=== PATIENT | male | born 1990 | race Caucasian/White ===

== ENCOUNTER 2017-04-20 11:13 | Emergency (ER) | payer SELFPAY ==
[2017-04-20] MEDS ORDERED: BUPIVACAINE HCL 0.5 % INJ/PF 30 ML SDV INJ ONE (12:09)
[2017-04-20] MEDS ORDERED: HYDROCODONE/ACETAMINOPHEN 5-325 MG (6 TAB/ER DISP) PO PRN (12:09)
[2017-04-20] MEDS ORDERED: HYDROCODONE/ACETAMINOPHEN 5-325 MG TABLET PO ONE (12:09)
--- NOTE | 2017-04-20 12:09 | ER Document Report ---
HPI - HPI Patient complains to provider of: toothache Pain Level: 4 Context: Patient is a 27-year-old male presents emergency department complaining of left lower jaw pain. Patient states that he is dental pain on and off every couple months due to severe dental decay. Patient states that he is supposed to follow -up with a dentist for full dental extraction but he lost his insurance. Otherwise he denies any fever, chills, drainage or foul odor from teeth. Denies any difficulty swallowing or difficulty breathing. Patient is a smoker Past Medical History - Social History Smoking Status: Current Every Day Smoker Chew tobacco use (# tins/day): No Frequency of alcohol use: None Drug Abuse: None Family History: DM, Hypertension, Malignancy. denies: Arthritis, CAD, CVA, Hyperlipidemia, Thyroid Disfunction Renal/ Medical History: Denies: Hx Peritoneal Dialysis GI Medical History: Reports: Hx Gastritis, Hx Gastroesophageal Reflux Disease Psychiatric Medical History: Reports: Hx Anxiety, Hx Depression - Immunizations Immunizations up to date: Yes Hx Diphtheria, Pertussis, Tetanus Vaccination: Yes - 2013 Vertical Provider Document - CONSTITUTIONAL Agree With Documented VS: Yes Exam Limitations: No Limitations General Appearance: WD/WN, No Apparent Distress - INFECTION CONTROL TRAVEL OUTSIDE OF THE [place] IN LAST 30 DAYS: No - HEENT HEENT: Atraumatic, Normocephalic, PERRLA. negative: Normal ENT Exam Mouth Diagram: 1 - Evidence of severe dental decay with teeth down to the gums throughout the entire mouth with normal dentition of teeth 8 and 9. Tenderness along the left lower jaw without any evidence of gingival inflammation or abscess Notes: Uvula midline. Airway patent. No evidence of tonsillar enlargement, peritonsillar abscess, retropharyngeal abscess. - NECK Neck: Normal Inspection. negative: Lymphadenopathy-Left, Lymphadenopathy-Right Notes: No evidence of Bunny's angina - RESPIRATORY Respiratory: Breath Sounds Normal, No Respiratory Distress, Chest Non-Tender O2 Sat by Pulse Oximetry: 97 - CARDIOVASCULAR Cardiovascular: Regular Rate, Regular Rhythm, No Murmur Course - Re-evaluation Re-evalutation: 04/20/17 13:13 Presentation is most consistent with likely an infected tooth. Airway is patent. Vitals within normal limits. Patient is able swallow without any difficulty. There is no significant facial swelling. Patient will be started on antibiotics and a limited number of pain medications. I've instructed to follow-up with dentistry as earliest ability for definitive management. Return precautions and follow-up recommendations have been discussed at length. - Vital Signs Vital signs: Temp Pulse Resp BP Pulse Ox 97.6 F 67 20 126/82 H 97 04/20/17 11:17 04/20/17 11:17 04/20/17 11:17 04/20/17 11:17 04/20/17 11:17 Procedures - Additional Procedures Dental block Additional Procedures: Other - Left infra alveolar dental block 5 cc Sensorcaine. Patient tolerated procedure well with complete resolution of his symptoms and no complications Discharge - Discharge Clinical Impression: Toothache Condition: Good Disposition: HOME, SELF-CARE Additional Instructions: You have been seen for dental pain. It is very important that you follow-up with a dentist for definitive care. Please return if you develop fever greater than 101, swelling in your face, vomiting, difficulty breathing or swallowing, or any other symptoms that are concerning to you. F [facility] Address: [address] [place] [address] [address], [place] [address] [facility] [address] [place], [place] Monday mornings, by appointment [facility] [address] [place] [address] [facility] [address] [facility]. [facility] [address] [facility] [address] [facility] [employer] [facility] [address] [email or web address] [address] [place] [address] Monday- 8:00am to 5:00 pm Will see patients from other [facility]. Charges based on income and family size and accepts Medicare, Medicaid, and Insurances Will pull molars [facility] Student Clinics [facility], [facility]. [id number] Hours of Operation 8:00 am - 4:30 pm weekdays The following dental offices accept Medicaid: [facility] Dr. Zimmerman Dr. Hawthorne Dr. Velasquez Dr. Sanchez Jamal Taylor, Karly, and Shobha oral surgery Dr. Menendez ([place]) Dr. Gay ([place]) [facility] Drs. Sarmiento ([place]) Dr. Spann ([place]) [facility] Dr. Williamson ([place]) Drs. Reynoso and ([place]) Medicaid Care Line
[2017-04-20 13:22] VITALS: BP 133/89
== END 2017-04-20 13:22 | disposition home or self-care (01) ==
LOC: ER 11:13
PROC: 3E0T3BZ Introduction of Anesthetic Agent into Peripheral Nerves and Plexi, Percutaneous Approach (ICD-10-PCS; principal; 2017-04-20)
DX: K08.9 Disorder of teeth and supporting structures, unspecified (principal); F17.200 Nicotine dependence, unspecified, uncomplicated
CPT/HCPCS: 99282; J3490

== ENCOUNTER 2017-10-09 12:25 | Emergency (ER) | payer SELFPAY ==
[2017-10-09 12:45] VITALS: BP 126/86
[2017-10-09] MEDS ORDERED: OXYCODONE-ACETAMINOPHEN 5-325 MG TABLET PO ONE (13:42)
[2017-10-09] MEDS ORDERED: CLINDAMYCIN HCL 150 MG CAPSULE PO ONE (13:42)
[2017-10-09] MEDS ORDERED: IBUPROFEN 800 MG TABLET PO ONE (13:43)
--- NOTE | 2017-10-09 13:46 | ER Document Report ---
HPI - HPI Patient complains to provider of: dental infection Onset: Last week Onset/Duration: Worse Quality of pain: Sharp Pain Level: 4 Context: Patient states that he has had a dental infection with dental pain for the past week. Patient states over the past 2 days that his lower jaw started to swell. Patient denies any fever. Patient states that his child accidentally hit his lower jaw with his head in the area noticeably started to swell. Patient denies any fever. Associated Symptoms: Other - Dental pain. denies: Fever Exacerbated by: Denies Relieved by: Denies Similar symptoms previously: Yes Recently seen / treated by doctor: No - ROS ROS below otherwise negative: Yes Systems Reviewed and Negative: Yes All other systems reviewed and negative - CONSTITUTIONAL Constitutional: DENIES: Fever, Chills - EENT Notes: dental infection - RESPIRATORY Respiratory: DENIES: Coughing - GASTROINTESTINAL Gastrointestinal: DENIES: Nausea, Patient vomiting - DERM Skin Color: Normal Skin Problems: None Past Medical History - General Information source: Patient - Social History Smoking Status: Current Every Day Smoker Chew tobacco use (# tins/day): No Smoking Education Provided: Yes Frequency of alcohol use: None Drug Abuse: None Lives with: Family Family History: DM, Hypertension, Malignancy. denies: Arthritis, CAD, CVA, Hyperlipidemia, Thyroid Disfunction Patient has suicidal ideation: No Patient has homicidal ideation: No Renal/ Medical History: Denies: Hx Peritoneal Dialysis GI Medical History: Reports: Hx Gastritis, Hx Gastroesophageal Reflux Disease Psychiatric Medical History: Reports: Hx Anxiety, Hx Depression - Immunizations Immunizations up to date: Yes Hx Diphtheria, Pertussis, Tetanus Vaccination: Yes - 2014 Vertical Provider Document - CONSTITUTIONAL Agree With Documented VS: Yes Exam Limitations: No Limitations General Appearance: WD/WN, No Apparent Distress - INFECTION CONTROL TRAVEL OUTSIDE OF THE [place] IN LAST 30 DAYS: No - HEENT HEENT: Atraumatic, Normocephalic. negative: Pharyngeal Exudate, Pharyngeal Tenderness, Pharyngeal Erythema, Tympanic Membrane Red, Tympanic Membrane Bulging Mouth Diagram: 1 - widespread decay, dental fracture 2 - abscess Notes: No sublingual or submental swelling. No trismus - NECK Neck: Normal Inspection, Supple. negative: Lymphadenopathy-Left, Lymphadenopathy-Right - RESPIRATORY Respiratory: No Respiratory Distress - MUSCULOSKELETAL/EXTREMETIES Musculoskeletal/Extremeties: MAEW - NEURO Level of Consciousness: Awake, Alert, Appropriate Motor/Sensory: No Motor Deficit - DERM Integumentary: Warm, Dry, No Rash Course - Re-evaluation Re-evalutation: 10/09/17 Controlled substance database reviewed - Vital Signs Vital signs: Temp Pulse Resp BP Pulse Ox 98.1 F 65 18 126/86 H 98 10/09/17 12:44 10/09/17 12:44 10/09/17 12:44 10/09/17 12:44 10/09/17 12:44 Procedures - Incision and Drainage Left Face Type: Simple Incision Method: Incision made with needle Amount/type of drainage: small amount of purulent, bloody drainage Mouth/Teeth picture: 1 - abscess i&d site Discharge - Discharge Clinical Impression: Dental abscess Condition: Stable Disposition: HOME, SELF-CARE Instructions: Clindamycin ([facility]), Dental Infection or Abscess ([facility]), Oral Narcotic Medication ([facility]) Additional Instructions: Return immediately for any new or worsening symptoms Followup with your primary care provider, call tomorrow to make a followup appointment Follow-up with a dental care provider Prescriptions: Acetaminophen with Codeine [Acetaminophen-Cod #3 Tablet] 1 each PO Q6 PRN #15 tablet PRN Reason: Clindamycin HCl [Cleocin 300 mg Capsule] 300 mg PO TID #21 capsule Naproxen [Naprosyn 250 Nmg Tablet] 1 tab PO BID #14 tablet Forms: Smoking Cessation Education Referrals: [facility] [Provider Group] - Follow up tomorrow
== END 2017-10-09 13:57 | disposition home or self-care (01) ==
LOC: ER 12:25
DX: K04.7 Periapical abscess without sinus (principal); K02.9 Dental caries, unspecified; K08.89 Other specified disorders of teeth and supporting structures; F17.200 Nicotine dependence, unspecified, uncomplicated
CPT/HCPCS: 99283

== ENCOUNTER 2020-01-21 12:21 | Emergency (ER) | payer SELFPAY ==
[2020-01-21 13:22] VITALS: BP 130/73
--- NOTE | 2020-01-21 13:41 | ER Document Report ---
ED ENT - General Chief Complaint: Runny Nose Stated Complaint: HEAD PAIN/CONGESTION Time Seen by Provider: 01/21/20 13:39 Mode of Arrival: Ambulatory Information source: Patient Notes: 29-year-old male with no previous medical problems presents to the emergency room complaining of sinus pain and pressure with a runny nose for the past 4 days. Denies any fevers, no shortness of breath, no difficulty breathing. No recent travel. No COVID-19 exposure. Has been using an [id number]-nvkuqom nasal spray along with ibuprofen without relief. He normally. No ill contacts. TRAVEL OUTSIDE OF THE [place] IN LAST 30 DAYS: No - Related Data Allergies/Adverse Reactions: No Known Allergies Allergy (Verified 10/09/17 13:16) Past Medical History - General Information source: Patient - Social History Smoking Status: Current Every Day Smoker Frequency of alcohol use: None Drug Abuse: None Family History: DM, Hypertension, Malignancy. denies: Arthritis, CAD, CVA, Hyperlipidemia, Thyroid Disfunction Renal/ Medical History: Denies: Hx Peritoneal Dialysis GI Medical History: Reports: Hx Gastritis, Hx Gastroesophageal Reflux Disease Psychiatric Medical History: Reports: Hx Anxiety, Hx Depression - Immunizations Immunizations up to date: Yes Hx Diphtheria, Pertussis, Tetanus Vaccination: Yes - 2013 Review of Systems - Review of Systems Constitutional: No symptoms reported EENT: Nose congestion, Nose discharge, Sinus pressure Cardiovascular: No symptoms reported Respiratory: No symptoms reported Gastrointestinal: No symptoms reported Musculoskeletal: No symptoms reported Hematologic/Lymphatic: No symptoms reported Neurological/Psychological: No symptoms reported -: Yes All other systems reviewed and negative Physical Exam - Vital signs Vitals: Temp Pulse Resp BP Pulse Ox 98.1 F 69 16 130/73 H 99 01/21/20 13:20 01/21/20 13:20 01/21/20 13:20 01/21/20 13:20 01/21/20 13:20 - General General appearance: Appears well, Alert In distress: Mild - HEENT Head: Normocephalic, Atraumatic Eyes: Normal Pupils: PERRL External canal: Normal Tympanic membrane: Normal Sinus: Frontal Nasal: Clear rhinorrhea Mouth/Lips: Normal Mucous membranes: Normal Pharynx: Normal Neck: Normal - Respiratory Respiratory status: No respiratory distress Chest status: Nontender Breath sounds: Normal Chest palpation: Normal - Cardiovascular Rhythm: Regular Heart sounds: Normal auscultation Murmur: No - Neurological Neuro grossly intact: Yes Cognition: Normal Orientation: AAOx4 [place] Coma Scale Eye Opening: Spontaneous [place] Coma Scale Verbal: Oriented [place] Coma Scale Motor: Obeys Commands [place] Coma Scale Total: 15 Speech: Normal Motor strength normal: LUE, RUE, LLE, RLE Sensory: Normal - Skin Skin Temperature: Warm Skin Moisture: Dry Skin Color: Normal Course - Re-evaluation Re-evalutation: 01/21/20 13:56 Counseled patient on viral illness. Afebrile, nontoxic-appearing, counseled patient on no signs of acute sinus infection. Continue with supportive therapy. Outpatient follow-up with primary care physician if not improving in 2 to 3 days. On-call physician was provided. Patient was given strict return to the emergency room guidelines. Return for any new or worsening symptoms. All questions were answered. Patient verbalized understanding and agrees with plan of care. - Vital Signs Vital signs: Temp Pulse Resp BP Pulse Ox 98.1 F 69 16 130/73 H 99 01/21/20 13:20 01/21/20 13:20 01/21/20 13:20 01/21/20 13:20 01/21/20 13:20 Discharge - Discharge Clinical Impression: Viral URI Condition: Stable Disposition: HOME, SELF-CARE Instructions: Upper Respiratory Illness ([facility]) Additional Instructions: Your symptoms are most likely due to a viral infection it should resolve over the next 7-14 days. You should take [id number] guanfacine per bottle instructions to help thin the mucus. For nasal congestion: Continue use of nasal spray as directed. You may also use tylenol or ibuprofen as needed for aches and discomfort. Please be sure to drink plenty of fluids and get rest. Return to the emergency department he began having difficulty breathing, chest pain, persistent vomiting, or any other symptoms that are concerning to you. Forms: Return to Work Referrals: INGRID MENEZES MD [COMMUNITY BASED STAFF] - Follow up as needed
== END 2020-01-21 14:04 | disposition home or self-care (01) ==
LOC: ER 12:21
DX: J06.9 Acute upper respiratory infection, unspecified (principal); R09.89 Other specified symptoms and signs involving the circulatory and respiratory systems; R51 Headache; R09.81 Nasal congestion; F17.200 Nicotine dependence, unspecified, uncomplicated
CPT/HCPCS: 99283

== ENCOUNTER 2020-01-22 04:28 | Emergency (ER) | payer SELFPAY ==
[2020-01-22 04:35] VITALS: BP 144/96
[2020-01-22] MEDS ORDERED: HYDROCODONE/ACETAMINOPHEN 5-325 MG (6 TAB/ER DISP) PO PRN (06:52)
[2020-01-22] MEDS ORDERED: AMOXICILLIN TRIHYDRATE 500 MG CAPSULE PO ONE (06:52)
--- NOTE | 2020-01-22 06:54 | ER Document Report ---
HPI - HPI Time Seen by Provider: 01/22/20 06:43 Pain Level: 3 Context: Patient is a 29-year-old male that comes emergency department for chief complaint of swelling and pain to the left side of the face and upper jaw. He states he was seen earlier today, diagnosed with viral sinusitis, he states that he is taking regiment and Tylenol and ibuprofen with no significant improvement of his symptoms, he states he cannot sleep. He denies vomiting, fever, cough, neck stiffness, sore throat, difficulty swallowing. He does admit to some mild congestion nasally. He takes no daily medications. - REPRODUCTIVE Reproductive: DENIES: : Past Medical History - General Information source: Patient - Social History Smoking Status: Current Every Day Smoker Frequency of alcohol use: None Drug Abuse: None Lives with: Family Family History: DM, Hypertension, Malignancy. denies: Arthritis, CAD, CVA, Hyperlipidemia, Thyroid Disfunction Patient has homicidal ideation: No Renal/ Medical History: Denies: Hx Peritoneal Dialysis GI Medical History: Reports: Hx Gastritis, Hx Gastroesophageal Reflux Disease Psychiatric Medical History: Reports: Hx Anxiety, Hx Depression - Immunizations Immunizations up to date: Yes Hx Diphtheria, Pertussis, Tetanus Vaccination: Yes - 2013 [facility] Provider Document - CONSTITUTIONAL General Appearance: WD/WN, Mild Distress - Patient appears uncomfortable and is not in severe distress - INFECTION CONTROL TRAVEL OUTSIDE OF THE [place] IN LAST 30 DAYS: No - HEENT HEENT: Atraumatic, Normocephalic, PERRLA. negative: Conjuctival Injection, Dental Injury Mouth Diagram: 1 - Dental caries with surrounding erythema and tenderness, widespread dental caries otherwise, no abscess is noted - NECK Neck: Normal Inspection - RESPIRATORY Respiratory: Breath Sounds Normal, No Respiratory Distress - CARDIOVASCULAR Cardiovascular: Regular Rate, Regular Rhythm - GI/ABDOMEN Gastrointestinal: Abdomen Soft, Abdomen Non-Tender - BACK Back: Normal Inspection - MUSCULOSKELETAL/EXTREMETIES Musculoskeletal/Extremeties: MAEW, FROM, Non-Tender - NEURO Level of Consciousness: Awake, Alert, Appropriate Motor/Sensory: No Motor Deficit, No Sensory Deficit - DERM Integumentary: Warm, Dry, No Rash Course - Re-evaluation Re-evalutation: Physical exam is most consistent with a dental infection, no signs of sinusitis on my exam, no abscess or Bunny angina is noted. - Vital Signs Vital signs: Temp Pulse Resp BP Pulse Ox 97.9 F 64 17 144/96 H 100 01/22/20 04:32 01/22/20 04:32 01/22/20 04:32 01/22/20 04:32 01/22/20 04:32 Discharge - Discharge Clinical Impression: Swelling of left side of face, Pain, dental, Dental infection Condition: Stable Disposition: HOME, SELF-CARE Instructions: Oral Narcotic Medication ([facility]) Additional Instructions: Your evaluation indicates a dental infection. Take the antibiotics as prescribed to completion, call the listed dental referral for additional management or this will continue to happen. Return if you worsen including increased welling of the face, fever, or any other concerning or worsening symptoms. [facility] [address] [place] [address], [id number] Prescriptions: Amoxicillin Trihydrate [Amoxil 500 mg Capsule] 500 mg PO BID 10 Days #20 capsule Forms: Return to Work
== END 2020-01-22 07:14 | disposition home or self-care (01) ==
LOC: ER 04:28
DX: K04.7 Periapical abscess without sinus (principal); K08.89 Other specified disorders of teeth and supporting structures; M79.89 Other specified soft tissue disorders; R51 Headache; R68.84 Jaw pain; R22.0 Localized swelling, mass and lump, head; F17.200 Nicotine dependence, unspecified, uncomplicated
CPT/HCPCS: 99282